=== PATIENT | male | born 1990 | race Caucasian/White ===

== ENCOUNTER → 2018-10-26 | Outpatient (CLI) | payer OTHER | LOC: FIMAGING 19:11 | PROVIDERS: ATTEND Physician Assistant Medical | DX: G93.0 Cerebral cysts (principal); I66.9 Occlusion and stenosis of unspecified cerebral artery ==

== ENCOUNTER 2019-03-10 14:05 | Emergency (ER) | payer OTHER | END 2019-03-10 17:43 | disposition home or self-care (01) ==